=== PATIENT | male | born 1970 | race Caucasian/White ===

== ENCOUNTER 2021-07-03 23:43 | Inpatient (IN) | payer OTHER ==
[~2021-07-03] VITALS: Ht 177.8 cm; Wt 117.2 kg
[~2021-07-03 23:43] MED LIST: BUPR150ER PO; COLCRYS0.6 MG PO; FEBU40TA PO; PRED20 PO; Percocet 5-3251 EACH PO; RXOXYACE PO
[2021-07-04 00:44] LABS: BASOPHILS ABSOLUTE AUTO 0.02 K/mm3 (0.00-0.23); BASOPHILS PERCENT AUTO 0 % (0-2); EOSINOPHILS PERCENT AUTO 0 % (0-6); Hematocrit 48.4 % (37.0-53.0); Hemoglobin 16.4 g/dL (13.5-17.5); IMMATURE GRAN ABSOLUTE AUTO 0.04 K/mm3 (0.00-0.10); IMMATURE GRAN PERCENT AUTO 0 % (0-1); LYMPHOCYTES ABSOLUTE AUTO 0.92 K/mm3 (0.84-5.20); LYMPHOCYTES PERCENT AUTO 9 % (21-46); MONOCYTES ABSOLUTE AUTO 0.58 K/mm3 (0.16-1.47); MONOCYTES PERCENT AUTO 6 % (4-13); Mean Corpuscular HGB 31.2 pg (26.0-34.0); Mean Corpuscular HGB Conc 33.9 g/dL (31.5-36.5); Mean Corpuscular Volume 92 fL (80-100); Mean Platelet Volume 10.6 fL (9.1-12.4); NEUTROPHILS ABSOLUTE AUTO 8.38 K/mm3 (1.96-9.15); NEUTROPHILS PERCENT AUTO 84 % (41-73); Platelet Count 258 K/mm3 (150-400); RDW Standard Deviation 47.2 fL (35.1-46.3); Red Blood Cell Count 5.26 M/mm3 (4.30-5.90); White Blood Cell Count 9.94 K/mm3 (4.00-11.30)
[2021-07-04 00:59] LABS: Alanine Aminotransfer (ALT/SGP 28 U/L (12-78); Albumin, Blood 3.4 g/dL (3.4-5.0); Albumin/Globulin Ratio 0.8 (0.8-1.8); Alk Phos 62 U/L (50-136); Anion Gap 4 mmol/L (6-16); Aspartate Aminotrans (AST/SGOT 15 U/L (12-37); Bilirubin, Total 2.3 mg/dL (0.1-1.0); Blood Urea Nitrogen 21 mg/dL (8-24); Bun/Creatinine Ratio 19.8 (12.0-20.0); CO2, Blood 28 mmol/L (21-32); Calcium, Blood 9.2 mg/dL (8.5-10.1); Chloride, Blood 105 mmol/L (98-108); Creatinine, Blood 1.06 mg/dL (0.60-1.20); Globulin, Blood 4.1 g/dL (2.2-4.0); Glomerular Filtration Rate >60 (60-); Glucose, Blood 167 mg/dL (70-99); Potassium, Blood 4.1 mmol/L (3.5-5.5); Sodium, Blood 137 mmol/L (136-145); Total Protein, Blood 7.5 g/dL (6.4-8.2)
[2021-07-04] MEDS ORDERED: PREG150 PO (04:34)
[2021-07-04] MEDS ORDERED: METO50ER PO (04:35)
[2021-07-04 04:36] LABS: Source, Urine Clean Catch
[2021-07-04 04:39] LABS: Appearance, Urine Clear (Clear); Bilirubin, Urine Neg (Neg); Blood, Urine Neg (Neg); Color, Urine Amber (P-Yellow); Glucose Qualitative, Urine Neg (Neg); Ketones, Urine Neg (Neg); Leukocyte Esterase, Urine 1+ (Neg); Nitrite, Urine Neg (Neg); Protein, Urine 2+ (Neg); Specific Gravity, Urine 1.015 (1.003-1.022); Urobilinogen, Urine 2+ (Normal)
[2021-07-04 04:50] LABS: Red Blood Cells, Urine Not Seen /hpf (0-2); Squamous Epithelial Cells Rare /hpf (Few)
[2021-07-04 04:51] LABS: Bacteria Not Seen /hpf
[2021-07-04 05:53] LABS: Influenza A, PCR NEGATIVE (NEGATIVE); Influenza B, PCR NEGATIVE (NEGATIVE); Resp Syncytial Virus, PCR NEGATIVE (NEGATIVE); SARS-Cov-2 (COVID-19) PCR, MMC NEGATIVE (NEGATIVE)
--- NOTE | 2021-07-04 05:54 | NUR ---
SHIFT/ADMIT SUMMARY S/P APPENDICITIS, A/O X4, VSS, NPO AT ADMIT, PT MEDICATED FOR PAIN PRIOR TO LEAVING ER AND WAS GROGGY UPON ARRIVAL, HX OBTAINED FROM PT AND HIS SPOUSE, CONSENTS OBTAINED, ADMIT COMPLETE, PT RESTING IN BED, CALL LIGHT IN REACH, WILL CTM AND REPORT TO DAY RN.
--- NOTE | 2021-07-04 12:52 | NUR ---
PT TO PACU FOR PREOP. AWAKE, ALERT. C/O SEVERE ABDOMINAL PAIN. RECEIVED PAIN MEDICATION AT 1130 PER FLOOR RN. PLAN FOR LAP APPY. PT VERBALIZES UNDERSTANDING OF PLAN FOR OR.
--- NOTE | 2021-07-04 16:41 | NUR ---
PATIENT ARRIVED BACK TO FLOOR VIA STRETCHER FROM PACU. PATIENT TRANSFERED TO BED WITH SLIDE SHEET. O2 AT 4L/NC AT THIS TIME. RESP SLIGHTLY LABORED. COMPLAINS OF ABD PAIN/TIGHTNESS. BOWEL SOUNDS HYPOACTIVE. GIVEN WATER AND JELLO. NO SIGNS OR SYMPTOMS ACUTE DISTRESS NOTED AT THIS TIME. CALL LIGHT IN EASY REACH. ABLE TO MAKE NEEDS AND WANTS KNOWN.
--- NOTE | 2021-07-04 18:09 | NUR ---
PATIENT LYING IN BED WITH NO SIGNS OR SYMPTOMS ACUTE DISTRESS NOTED. CALL LIGHT AND WATER IN EASY REACH. NO COMPLAINTS OF PAIN OR NAUSEA AT THIS TIME. HAD BEEN VISITING. PATIENT IS ABLE TO MAKE NEEDS AND WANTS KNOWN. REGULAR MEAL TRAY ORDERED FOR DINNER TONIGHT PATIENT HAS TOLERATED WATER, JELLO AND CRACKERS. IVF INFUSING. LAP SITES TO ABD X 3 WITH STERISTRIPS, MIDDLE INCISION WAS DRAINING, BANDAID PLACED. WILL JACQUE.
[2021-07-05 04:08] LABS: Hematocrit 42.9 % (37.0-53.0); Hemoglobin 14.4 g/dL (13.5-17.5); Mean Corpuscular HGB 31.3 pg (26.0-34.0); Mean Corpuscular HGB Conc 33.6 g/dL (31.5-36.5); Mean Corpuscular Volume 93 fL (80-100); Mean Platelet Volume 10.5 fL (9.1-12.4); Platelet Count 163 K/mm3 (150-400); RDW Coefficient Variation 14.3 % (11.7-14.2); RDW Standard Deviation 48.9 fL (35.1-46.3); White Blood Cell Count 10.77 K/mm3 (4.00-11.30)
--- NOTE | 2021-07-05 04:21 | NUR ---
LYING IN SEMI FOWLERS WITH EYES CLOSED. HAS BEEN PLEASANT AND COOPERATIVE WITH CARE. ABD LAP SITES X3 FOR LAP APPY REMAIN C/D/I. PAIN MANAGED WITH PERCOCET AND TORADOL PER EMAR. DENIES FURTHER NEEDS OR WANTS AT THIS TIME. SAFETY MEASURES IN PLACE. WILL GIVE HAND OFF TO ONCOMING SHIFT USIING SBAR DURING BEDSIDE REPORT.
[2021-07-05 04:39] LABS: Alanine Aminotransfer (ALT/SGP 21 U/L (12-78); Albumin, Blood 2.6 g/dL (3.4-5.0); Albumin/Globulin Ratio 0.7 (0.8-1.8); Alk Phos 45 U/L (50-136); Anion Gap 6 mmol/L (6-16); Aspartate Aminotrans (AST/SGOT 12 U/L (12-37); Bilirubin, Total 1.8 mg/dL (0.1-1.0); Blood Urea Nitrogen 32 mg/dL (8-24); Bun/Creatinine Ratio 27.8 (12.0-20.0); CO2, Blood 28 mmol/L (21-32); Calcium, Blood 8.9 mg/dL (8.5-10.1); Chloride, Blood 105 mmol/L (98-108); Creatinine, Blood 1.15 mg/dL (0.60-1.20); Globulin, Blood 3.9 g/dL (2.2-4.0); Glomerular Filtration Rate >60 (60-); Glucose, Blood 143 mg/dL (70-99); Potassium, Blood 4.6 mmol/L (3.5-5.5); Sodium, Blood 139 mmol/L (136-145); Total Protein, Blood 6.5 g/dL (6.4-8.2)
[2021-07-05 05:36] LABS: BAND PERCENT MAN 25 % (0-8); BASOPHILS PERCENT MAN 0 % (0-2); EOSINOPHILS PERCENT MAN 0 % (0-6); LYMPHOCYTES ABSOLUTE MAN 0.75 K/mm3 (0.84-5.20); LYMPHOCYTES PERCENT MAN 7 % (21-46); METAMYELOCYTE PERCENT MAN 1 % (0-0); MONOCYTES PERCENT MAN 1 % (4-13); MYELOCYTE PERCENT MAN 1 % (0-0); NEUTROPHILS ABSOLUTE MAN 9.69 K/mm3 (1.96-9.15); SEG NEUTROPHILS PERCENT MAN 65 % (41-73); TOTAL CELLS COUNTED 100
--- NOTE | 2021-07-05 17:31 | NUR ---
SHIFT SUMMARY PT A&OX4, VSS/RA, POD1, LAP APPY, 3 STERIS DRY/INTACT. PAIN MANAGED WITH PERCOCET AND TORADOL. ABX Q6 PER EMAR, IV SL OTHERWISE. DANIA PO INTAKE. VOIDING WELL. AMBULATING TO [facility], UP IN ROOM AND HALLWAY, INDEPENDENTLY. WILL REPORT TO ONCOMING NOC RN.
--- NOTE | 2021-07-06 04:09 | NUR ---
SHIFT SUMMARY PT A&O & IN PLEASENT MOOD T/O SHIFT. PT UP AND DOWN T/O NIGHT, C/O PAIN, MEDICATED PER EMAR. VOIDING WELL, TOLERATING PO INTAKE. DENIES N/V T/O SHIFT. 3 LAP SITES CDI. BT PRESENT IN ALL 4 Q'S. PT REPORTS PASSING FLATUS. VSS. CALL LIGHT W/IN REACH.
[2021-07-06] MEDS ORDERED: AMOCLA875 PO (10:22)
[2021-07-06] MEDS ORDERED: OXYC10TA19 PO (10:23)
--- NOTE | 2021-07-06 11:00 | NUR ---
DISCHARGE SUMMARY PT A&OX4, VSS/RA, DANIA PO, VOIDING WELL, PAIN MANAGED WITH PERCOCET, AMBULATING INDEPENDENTLY IN ROOM/HALLWAY. DECLINED WC, LEFT FLOOR TO GO HOME WITH , WITH ALL PERSONAL POSSESSIONS INCLUDING DC PACKET AND NARC SCRIPT. DC INSTRUCTIONS PROVIDED; PT REP UNDERSTANDING THOSE INSTRUCTIONS. IV DC'D.
== END 2021-07-06 11:02 | disposition home or self-care (01) | DRG 340 ==
LOC: ER 23:43 → SURS 07-04 02:36
PROVIDERS: Student in an Organized Health Care Education/Training Program; ADMIT Surgery
PROC: 0DTJ4ZZ Resection of Appendix, Percutaneous Endoscopic Approach (ICD-10-PCS; principal; 2021-07-04 11:30)
DX: K35.32 Acute appendicitis with perforation, localized peritonitis, and gangrene, without abscess (principal); Z20.822 Contact with and (suspected) exposure to COVID-19; M10.9 Gout, unspecified; I10 Essential (primary) hypertension; E66.9 Obesity, unspecified; M79.7 Fibromyalgia; M19.90 Unspecified osteoarthritis, unspecified site; Z79.899 Other long term (current) drug therapy; Z68.35 Body mass index [BMI] 35.0-35.9, adult
CPT/HCPCS: 0241U; 36415; 74177; 80053; 81001; 83690; 85025; 87086; 88304; 93005; 93010; 96365; 96366; 96375; 99285-25; A9270; J0295; J1100; J1170; J1885; J2250; J2270; J2370; J2405; J2543; J2704; J3010; J7030; J7120; Q9967

== ENCOUNTER 2023-04-05 19:07 | Emergency (ER) | payer OTHER ==
[~2023-04-05] VITALS: Ht 177.8 cm; Wt 124.7 kg
[~2023-04-05 19:07] MED LIST changes: +AMOCLA875 PO; +METO50ER PO; +OXYC10TA19 PO; +PREG150 PO
[2023-04-05 19:18] VITALS: BP 181/106
== END 2023-04-05 21:49 | disposition home or self-care (01) ==
LOC: ER 19:07
DX: S62.642A Nondisplaced fracture of proximal phalanx of right middle finger, initial encounter for closed fracture (principal); W10.8XXA Fall (on) (from) other stairs and steps, initial encounter; Z79.899 Other long term (current) drug therapy; M10.9 Gout, unspecified; M19.90 Unspecified osteoarthritis, unspecified site; I10 Essential (primary) hypertension
CPT/HCPCS: 29125; 73130; 99283-25